=== PATIENT | female | born 1995 | race Caucasian/White ===

== ENCOUNTER 2021-03-27 09:44 | Emergency (ER) | payer BC ==
[2021-03-27 09:50] VITALS: RESP 18
[2021-03-27] MEDS ORDERED: LORazepam 1 MG TAB PO STA (10:17)
[2021-03-27] MEDS ORDERED: LIDOCAINE 1% INJ 10MG/ML (20 ML MDV) SQ ONE (10:18)
[2021-03-27] MEDS ORDERED: HYDROcodone/APAP 5-325MG 1 EACH TAB PO STA (10:18)
--- NOTE | 2021-03-27 10:26 | ED ---
Skin/Abscess/FB HPI - General Chief complaint: Skin/Abscess/Foreign Body Stated complaint: Vomiting/Rectal Pain Time Seen by Provider: 03/27/21 10:03 Source: patient, family, RN notes reviewed Mode of arrival: ambulatory Limitations: no limitations - History of Present Illness Initial comments: Patient is a 25-year-old female presenting to the emergency Department with complaints of a pilonidal cyst for the past 4 days. States the pain has become unbearable since last night, so she came in for evaluation. She denies any fevers or chills, no nausea or vomiting. Denies any drainage from the area. She denies ever having this before. She has no further complaints. - Related Data Home Medications Medication Instructions Recorded Confirmed Lisdexamfetamine Dimesylate 40 mg PO QAM 03/27/21 03/27/21 [Vyvanse] Prazosin HCl 2 mg PO HS 03/27/21 03/27/21 QUEtiapine [SEROquel] 100 mg PO HS 03/27/21 03/27/21 hydrOXYzine pamoate [Vistaril] 25 mg PO BID 03/27/21 03/27/21 lamoTRIgine 150 mg PO DAILY 03/27/21 03/27/21 Previous Rx's Medication Instructions Recorded Cephalexin [Keflex] 500 mg PO Q6HR 5 Days #20 cap 03/27/21 Allergies Allergy/AdvReac Type Severity Reaction Status Date / Time No Known Allergies Allergy Verified 03/27/21 10:58 Review of Systems ROS Statement: Those systems with pertinent positive or pertinent negative responses have been documented in the HPI. ROS Other: All systems not noted in ROS Statement are negative. Past Medical History Past Medical History: No Reported History History of Any Multi-Drug Resistant Organisms: None Reported Past Surgical History: No Surgical Hx Reported Past Psychological History: Anxiety, Bipolar Smoking Status: Never smoker Past Alcohol Use History: None Reported Past Drug Use History: None Reported General Exam - General Exam Comments Initial Comments: GENERAL: Patient is well-developed and well-nourished. Patient is nontoxic and in no acute distress, but very anxious. HEAD: Atraumatic, normocephalic. EYES: Pupils equal round and reactive to light, extraocular movements intact, sclera anicteric, conjunctiva are normal. Eyelids were unremarkable. LUNGS: Unlabored respirations. Breath sounds clear to auscultation bilaterally and equal. No wheezes rales or rhonchi. HEART: Regular rate and rhythm without murmurs, rubs or gallops. ABDOMEN: Soft, nontender, normoactive bowel sounds. No guarding, no rebound. No masses appreciated. MUSCULOSKELETAL: Normal extremities with adequate strength and normal range of motion, no pitting or edema. No clubbing or cyanosis. NEUROLOGICAL: Patient is alert and oriented x 3. Normal speech, normal gait. PSYCH: Normal mood, normal affect. SKIN: Warm, Dry, normal turgor, no rashes. Patient has a 1 cm pilonidal cyst, no surrounding erythema, it is fluctuant with some mild surrounding induration. Limitations: no limitations Course Vital Signs 03/27/21 03/27/21 09:48 11:52 Temperature 97.8 F 98.4 F Pulse Rate 136 H 98 Respiratory 18 18 Rate Blood Pressure 120/84 130/88 O2 Sat by Pulse 95 98 Oximetry Procedures - [facility] Protocol (Time Out) Procedure Performed:: I&D Performing Provider: Celena Ramirez Nurse: Serena Reynoso Timeout Date: 03/27/21 Timeout Time: 11:15 Patient Identification (2 identifiers required): Chart, Verbal, Arm Band Patient/Legal Field Spec has Confirmed: Identity, Site, Procedure, Consent Site: buttock Final Confirmation: Procedure, Site, Laterality - Incision & Drainage Consent Obtained: verbal consent, written consent Indication: Pilondonl abscess Site: buttock Size (cm): 1 Anesthetic Used: lidocaine 1% Amount (mLs): 4 I&D Cleaning Method: Alcohol Wipe Scalpel Used: #11 I&D Drainage Obtained: Pus, Blood Patient Tolerated Procedure: well Medical Decision Making - Medical Decision Making Patient is a 25-year-old female here with a pilonidal cyst for the past 4 days. No fevers, cyst is approximately 1 cm diameter, no surrounding erythema. Patient did consent to I&D. Patient does have history of high anxiety, she is requesting medication to help calm her nerves before the procedure. I did give her a tablet of Ativan and [place] for pain relief. She refused an injection. Large amount of purulent and odorous drainage was obtained, she tolerated procedure well. Patient was placed on antibiotic and given surgical follow-up as needed. She is agreeable to this plan of care. She can take Tylenol and/or Motrin for any discomfort, continue with warm compresses. Return parameters were discussed with her and she verbalized understanding. Case discussed with Dr. Vásquez. Disposition Clinical Impression: Pilonidal cyst Disposition: HOME SELF-CARE Condition: Stable Instructions (If sedation given, give patient instructions): Abscess Incision and Drainage (DC) Additional Instructions: Please return to the Emergency Department if symptoms worsen or any other concerns. Take antibiotics as prescribed. Alternate between Tylenol and Motrin for any discomfort. Continue with warm compresses, warm baths to the area. Follow-up with surgeon if symptoms persist or worsen. Prescriptions: Cephalexin [Keflex] 500 mg PO Q6HR 5 Days #20 cap Is patient prescribed a controlled substance at d/c from ED?: No Referrals: None,Stated [Primary Care Provider] - 1-2 days James Turner MD [STAFF PHYSICIAN] - 1-2 days Time of Disposition: 11:34
[2021-03-27 11:52] VITALS: BP 130/88; PULSE 98; TEMP 98.4
== END 2021-03-27 11:52 | disposition home or self-care (01) ==
LOC: EC 09:44
DX: L05.01 Pilonidal cyst with abscess (principal); F41.9 Anxiety disorder, unspecified; F31.9 Bipolar disorder, unspecified
CPT/HCPCS: 99282; 10080; J2001

== ENCOUNTER 2024-01-23 05:29 | Emergency (ER) | payer BC ==
[2024-01-23 05:35] VITALS: RESP 18
--- NOTE | 2024-01-23 06:29 | ED ---
Chest Pain HPI - General Chief Complaint: Chest Pain Stated Complaint: Chest pain, NV, hands numb Time Seen by Provider: 01/23/24 06:27 Source: patient, RN notes reviewed Mode of arrival: ambulatory Limitations: no limitations - History of Present Illness Initial Comments: 28-year-old female presented to ER with a chief complaint of chest discomfort. Patient states she was woken from her sleep this morning due to a cramping chest discomfort with radiation to her back. She does report shortness of breath and nausea during this episode. Denies vomiting. She also describes bilateral hand numbness which has since resolved. No known cardiac history. No current symptoms or complaints. Denies any history of blood clots, blood thinner use or recent travel. Patient believes she may have sleep apnea. - Related Data Home Medications Medication Instructions Recorded Confirmed Lisdexamfetamine Dimesylate 40 mg PO QAM 03/27/21 03/27/21 [Vyvanse] Prazosin HCl 2 mg PO HS 03/27/21 03/27/21 QUEtiapine [SEROquel] 100 mg PO HS 03/27/21 03/27/21 hydrOXYzine pamoate [Vistaril] 25 mg PO BID 03/27/21 03/27/21 lamoTRIgine 150 mg PO DAILY 03/27/21 03/27/21 Previous Rx's Medication Instructions Recorded Cephalexin [Keflex] 500 mg PO Q6HR 5 Days #20 cap 03/27/21 Allergies Allergy/AdvReac Type Severity Reaction Status Date / Time No Known Allergies Allergy Verified 01/23/24 05:34 Review of Systems ROS Statement: Those systems with pertinent positive or pertinent negative responses have been documented in the HPI. ROS Other: All systems not noted in ROS Statement are negative. EKG Findings - EKG Comments: EKG Findings:: EKG taken at 5: 43 showing a sinus tachycardia with inverted T waves in lead III, aVF, V3. No acute ST segment changes. Ventricular rate 104, [place] interval 157, QRS duration 87, QT/QTc 327/387. Past Medical History Past Medical History: No Reported History History of Any Multi-Drug Resistant Organisms: None Reported Past Surgical History: No Surgical Hx Reported Past Psychological History: Anxiety, Bipolar Smoking Status: Never smoker Past Alcohol Use History: None Reported Past Drug Use History: None Reported General Exam Limitations: no limitations General appearance: alert, in no apparent distress Respiratory exam: Present: normal lung sounds bilaterally. Absent: respiratory distress, wheezes, rales, rhonchi, stridor Cardiovascular Exam: Present: tachycardia, normal heart sounds GI/Abdominal exam: Present: soft, normal bowel sounds. Absent: distended, tenderness, guarding, rebound, rigid Extremities exam: Present: normal inspection, full ROM, normal capillary refill. Absent: tenderness, pedal edema, joint swelling, calf tenderness Neurological exam: Present: alert, oriented X3, CN II-XII intact Skin exam: Present: warm, dry, intact, normal color. 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 sent in by a medical professional or institution (, PA, PUBLIC RELATIONS WRITER, urgent care, hospital, or custodial...) When possible be specific @ -No Did you speak to anyone other than the patient for history (EMS, parent, family, police, friend...)? What history was obtained from this source @ -No Did you review nursing and triage notes (agree or disagree)? Why? @ -I reviewed and agree with nursing and triage notes Were old charts reviewed (outside hosp., previous admission, EMS record, old EKG, old radiological studies, urgent care reports/EKG's, custodial records)? Report findings @ -No old charts were reviewed Differential Diagnosis (chest pain, altered mental status, abdominal pain women, abdominal pain men, vaginal bleeding, weakness, fever, dyspnea, syncope, headache, dizziness, GI bleed, back pain, seizure, CVA, palpatations, mental health, musculoskeletal)? @ -Differential Chest Pain:Stable Angina, Unstable Angina, STEMI, NSTEMI Aortic Dissection, Pneumothorax, Musculoskeletal, Esophageal Spasm GERD, Cholecystitis, Pancreatitis, Zoster, this is not meant to be an all-inclusive list. EKG interpreted by me (3pts min.). @ -As above X-rays interpreted by me (1pt min.). @ -Chest x-ray interpreted me negative for acute cardiopulmonary process. CT interpreted by me (1pt min.). @ -None done U/S interpreted by me (1pt. min.). @ -None done What testing was considered but not performed or refused? (CT, X-rays, U/S, labs)? Why? @ -None What meds were considered but not given or refused? Why? @ -None Did you discuss the management of the patient with other professionals (professionals i.e. DrMel, PA, PUBLIC RELATIONS WRITER, lab, RT, psych nurse, social economist, marketing business analyst, teacher, amphibious operations officer, director of casework services)? Give summary @ -No Was smoking cessation discussed for >3mins.? @ -No Was critical care preformed (if so, how long)? @ -No Were there social determinants of health that impacted care today? How? (Homelessness, low income, unemployed, alcoholism, drug addiction, transportation, low edu. Level, literacy, decrease access to med. care, senior living, rehab)? @ -No Was there de-escalation of care discussed even if they declined (Discuss DNR or withdrawal of care, Hospice)? DNR status @ -No What co-morbidities impacted this encounter? (DM, HTN, Smoking, COPD, CAD, Can cer, CVA, ARF, Chemo, Hep., AIDS, mental health diagnosis, sleep apnea, morbid obesity)? @ -None Was patient admitted / discharged? Hospital course, mention meds given and route, prescriptions, significant lab abnormalities, going to OR and other pertinent info. @ -28-year-old female presented the ER with a chief complaint of chest discomfort. History and physical exam completed. Patient tachycardic at 124 upon arrival. Vitals otherwise stable. Tachycardia believed to be anxiety in nature. Laboratory studies a mild leukocytosis of 13.8 with a left shift. D- dimer 0.23, troponin less than 0.012. Potassium 3.4. EKG showing sinus tachycardia with inverted T waves in lead III, aVF and V3. Patient given 1 L IV fluids with improvement of tachycardia. Chest x-ray negative for acute cardiopulmonary process. On reevaluation, patient resting comfortably exam room in no signs of acute distress. Results discussed with patient, all questions answered. HEART score 0. Patient stable for discharge with outpatient follow-up. Advise close follow-up PCP. Strict return parameters discussed. Patient discharged stable condition. Patient verbal expressed understanding and agreem ent care plan. Case discussed with ED attending, Dr. Kelly. Undiagnosed new problem with uncertain prognosis? @ -No Drug Therapy requiring intensive monitoring for toxicity (Heparin, Nitro, Insulin, Cardizem)? @ -No Were any procedures done? @ -No Diagnosis/symptom? @ -Atypical chest pain Acute, or Chronic, or Acute on Chronic? @ -Acute Uncomplicated (without systemic symptoms) or Complicated (systemic symptoms)? @ -Uncomplicated Side effects of treatment? @ -No Exacerbation, Progression, or Severe Exacerbation? @ -No Poses a threat to life or bodily function? How? (Chest pain, [place], MA, pneumonia, PE, COPD, DKA, ARF, appy, cholecystitis, CVA, Diverticulitis, Homicidal, Suicidal, threat to staff... and all critical care pts) @ -Low at this time Disposition Clinical Impression: Atypical chest pain Disposition: HOME SELF-CARE Condition: Stable Instructions (If sedation given, give patient instructions): Chest Pain (ED) Additional Instructions: Follow-up with PCP in the next 1 to 2 days. Return to the ER for any new or w orsening concerns. Is patient prescribed a controlled substance at d/c from ED?: No Referrals: None,Stated [Primary Care Provider] - 1-2 days Time of Disposition: 07:31
[2024-01-23] MEDS: SODIUM CHLORIDE 0.9% 1,000 ML IV STA (06:35)
[2024-01-23 06:58] LABS: Basophils # (A) 0.1 k/uL (0-0.2); Basophils % (A) 0 %; Eosinophils # (A) 0.2 k/uL (0-0.7); Eosinophils % (A) 1 %; Lymphocytes # (A) 1.1 k/uL (1.0-4.8); Lymphocytes % (A) 8 %; MCHC 35.6 g/dL (31.0-37.0); MCV 86.9 fL (80.0-100.0); Mean Platelet Volume 8.3; Monocytes # (A) 0.7 k/uL (0-1.0); Monocytes % (A) 5 %; Neutrophils # (A) 11.7 k/uL (1.3-7.7); Neutrophils % (A) 85 %; Platelet Count 172 k/uL (150-450); RBC 4.83 m/uL (3.80-5.40); RDW 12.8 % (11.5-15.5); WBC 13.8 k/uL (3.8-10.6)
[2024-01-23 07:07] LABS: Partial Thromboplastin Time 22.9 sec (22.0-30.0); Prothrombin Time 10.8 sec (10.0-12.5)
[2024-01-23 07:08] LABS: ALT 14 U/L (4-34); AST 28 U/L (14-36); African American GFR (CKD) >90 (>60 ml/min/1.73 sqM); Albumin 4.6 g/dL (3.5-5.0); Alkaline Phosphatase 60 U/L (38-126); Anion Gap 10 mmol/L; Blood Urea Nitrogen 13 mg/dL (7-17); Calcium 9.5 mg/dL (8.4-10.2); Carbon Dioxide 23 mmol/L (22-30); Chloride 106 mmol/L (98-107); Glucose 88 mg/dL (74-99); Magnesium 1.7 mg/dL (1.6-2.3); Non-African American GFR(CKD) >90 (>60 ml/min/1.73 sqM); Potassium 3.4 mmol/L (3.5-5.1); Sodium 139 mmol/L (137-145); Total Bilirubin 0.9 mg/dL (0.2-1.3); Total Protein 7.2 g/dL (6.3-8.2)
--- NOTE | 2024-01-23 07:33 | XR ---
EXAMINATION TYPE: XR chest 2V DATE OF EXAM: 01/23/2024 7:00 AM CLINICAL INDICATION: Female, 28 years old with history of Chest Pain; [facility] COMPARISON: None TECHNIQUE: XR chest 2V Frontal view of the chest. FINDINGS: Lungs/Pleura: There is no evidence of pleural effusion, focal consolidation, or pneumothorax. Pulmonary vascularity: Unremarkable. Heart/mediastinum: Cardiomediastinal silhouette is unremarkable. Musculoskeletal: No acute osseous pathology. Other findings: None IMPRESSION: No acute cardiopulmonary disease/process.
[2024-01-23 07:42] VITALS: BP 137/91; PULSE 89; TEMP 98.1
== END 2024-01-23 07:42 | disposition home or self-care (01) ==
LOC: EC 05:29
DX: R07.89 Other chest pain (principal)
CPT/HCPCS: 36415; 71046; 80053; 83735; 84484; 85025; 85379; 85610; 85730; 93005; 96360; 99285